=== PATIENT | female | born 1980 | race Caucasian/White ===

== ENCOUNTER 2017-08-16 08:08 | Emergency (ER) | payer MEDICAID, OTHER ==
[2017-08-16] MEDS: HYDROCODONE/APAP (10/325) TAB PO (08:40)
[2017-08-16] MEDS: ONDANSETRON (ODT) 4 MG TAB ODT (10:00)
== END 2017-08-16 10:40 | disposition home or self-care (01) ==
LOC: FTE 08:08
DX: S13.4XXA Sprain of ligaments of cervical spine, initial encounter (principal); S39.92XA Unspecified injury of lower back, initial encounter; S39.93XA Unspecified injury of pelvis, initial encounter; R10.2 Pelvic and perineal pain; V49.40XA Driver injured in collision with unspecified motor vehicles in traffic accident, initial encounter
CPT/HCPCS: 72040; 72072; 81025; 99284-25